=== PATIENT | female | born 1995 | race African-American/Black ===

== ENCOUNTER 2017-06-02 11:56 | Inpatient (IN) | payer BC, OTHER ==
[~2017-06-02] VITALS: Ht 170.2 cm; Wt 67.2 kg
[2017-06-02 11:58] VITALS: BP 133/83; PULSE 95; RESP 12; TEMP 98.5; O2SAT 98
[2017-06-02 13:10] LABS: AUTOMATED NEUTROPHIL # 5.9 TH/MM3 (1.8-7.7); BASOPHIL % 0.3 % (0.0-2.0); EOSINOPHIL # 0.1 TH/MM3 (0-0.4); EOSINOPHIL % 0.8 % (0.0-4.0); HEMATOCRIT 40.3 % (35.0-46.0); HEMO FLAGS DIFF FINAL; LYMPH % 16.2 % (9.0-44.0); LYMPHOCYTE # 1.2 TH/MM3 (1.0-4.8); MEAN CELL VOLUME 85.8 FL (80.0-100.0); MEAN CORPUSCULAR HEMOGLOBIN 29.1 PG (27.0-34.0); MEAN CORPUSCULAR HGB CONC 33.9 % (32.0-36.0); MONO % 4.8 % (0.0-8.0); NEUT % 77.9 % (16.0-70.0); PLATELET COUNT 235 TH/MM3 (150-450); RED CELL DISTRIBUTION WIDTH 12.9 % (11.6-17.2); WHITE BLOOD COUNT 7.6 TH/MM3 (4.0-11.0)
[2017-06-02 13:13] LABS: BACTERIA, URINE RARE /hpf; BLOOD, URINE LARGE (NEG); COMMENT (UR) CULT NOT INDICATED; CULTURE IF INDICATED CULT NOT INDICATED; GLUCOSE,URINE NEG (NEG); KETONE, URINE 10 mg/dL (NEG); MUCUS URINE MANY /lpf (OCC); NITRITE,URINE NEG (NEG); PH, URINE 5.5 (5.0-8.5); SQUAMOUS EPITHELIAL CELL URINE 4 /hpf (0-5); URINE COLOR YELLOW (YELLW/STRAW)
[2017-06-02 13:14] LABS: ALT (GPT) 116 U/L (10-53); ANION GAP 7 MEQ/L (5-15); AST (GOT) 495 U/L (15-37); BICARBONATE 26.3 MEQ/L (21.0-32.0); BLOOD UREA NITROGEN 10 MG/DL (7-18); CHLORIDE 105 MEQ/L (98-107); GLOMERULAR FILTRATION RATE 70 ML/MIN (>89); POTASSIUM 3.9 MEQ/L (3.5-5.1); SODIUM (NA) 138 MEQ/L (136-145)
[2017-06-02 13:43] LABS: ALKALINE PHOSPHATASE 82 U/L (45-117); TOTAL BILIRUBIN ADULT 0.3 MG/DL (0.2-1.0)
[2017-06-02 14:39] LABS: CKMB 3.5 NG/ML (0.5-3.6); CREATINE KINASE 29862 U/L (26-192)
[2017-06-02 14:58] VITALS: BP 125/77; PULSE 82; RESP 16; O2SAT 100
[2017-06-02] MEDS ORDERED: ORTHO (15:03)
[2017-06-02] MEDS ORDERED: SODIUM CHLOR 0.9% 1000 ML INJ 1,000 ML IV SCH (15:04)
[2017-06-02] MEDS ORDERED: LACTULOSE SYRUP 20 GM/30 ML CUP PO PRN (15:30)
[2017-06-02] MEDS ORDERED: NALOXONE HCL 0.4 MG/ML AMP IV PUSH PRN (15:30)
[2017-06-02] MEDS ORDERED: ONDANSETRON HCL 4 MG/2 ML VIAL IVP PRN (15:30)
[2017-06-02] MEDS ORDERED: MAGNESIUM HYDROXIDE SUSP 30 ML CUP PO PRN (15:30)
[2017-06-02] MEDS ORDERED: SODIUM CHLORIDE 0.9% FLUSH 10 ML FLUSH IV FLUSH PRN (15:30)
[2017-06-02] MEDS ORDERED: BISACODYL 10 MG SUPP RECTAL PRN (15:30)
[2017-06-02] MEDS ORDERED: SENNOSIDES 8.6 MG TAB PO PRN (15:30)
--- NOTE | 2017-06-02 15:44 | PD ---
HPI Chief Complaint: Musculoskeletal Complaint Time Seen by Provider: 14:55 Travel History International Travel<30 days: No Contact w/Intl Traveler<30days: No Traveled to known affect area: No History of Present Illness HPI 21-year-old female that presents to the ED for evaluation of bilateral arm pain. Patient has had this for 4 days. Per patient he started on Tuesday. She didn't think much of it she was doing a workout which is her usual for [employer] as well as [employer] class. She states that she didn't do any extraneous activity other than the pushups and pull ups and she did a full set for an hour. She denies any chest pain or shortness of breath. She has noted that her urine has been darker the past couple of days. She didn't think much of it but she decided to come here today because since yesterday she's been having difficulty extending her arms bilaterally. He is also noted swelling on her arms bilaterally. She denies any trauma. No falls. No head injury. No medical issues and takes no medications. She states that she's been trying to keep hydrated on her own and doing well but she's been feeling somewhat weak. She decided to come here today because the symptoms are not improving and she thought that she might just have pulled a muscle. She states that the pain is 7 out of 10 and gets worse when she extends. [facility] Past Medical History Medical History: Denies Significant Hx Tetanus Vaccination: < 5 Years ?: Unknown LMP: april? Past Surgical History Eye Surgery: Yes (2016) Other Surgery: Yes (hernia 2007) Social History Alcohol Use: Yes Tobacco Use: No Substance Use: No Allergies-Medications (Allergen,Severity, Reaction): Coded Allergies: No Known Allergies (Unverified , 06/02/17) Reported Meds & Prescriptions Reported Meds & Active Scripts Active Reported [ortho] Review of Systems Except as stated in HPI: all other systems reviewed are Neg Physical Exam Narrative GENERAL: SKIN: Warm and dry. HEAD: Atraumatic. Normocephalic. EYES: Pupils equal and round. No scleral icterus. No injection or drainage. ENT: No nasal bleeding or discharge. Mucous membranes pink and moist. Tongue is midline. No uvula deviation. NECK: Trachea midline. No JVD. CARDIOVASCULAR: Regular rate and rhythm. No murmurs, S3, S4. RESPIRATORY: No accessory muscle use. Clear to auscultation. Breath sounds equal bilaterally. GASTROINTESTINAL: Abdomen soft, non-tender, nondistended. Hepatic and splenic margins not palpable. MUSCULOSKELETAL: Extremities without clubbing, cyanosis, or edema. No obvious deformities. Patient cannot extend the arms bilaterally. 2+ pulses bilaterally. Some soft tissue swelling on the biceps bilaterally. Good capillary refill. NEUROLOGICAL: Awake and alert. No obvious cranial nerve deficits. Motor grossly within normal limits. Five out of 5 muscle strength in the arms and legs. Normal speech. PSYCHIATRIC: Appropriate mood and affect; insight and judgment normal. Data Data Last Documented VS Vital Signs Date Time Temp Pulse Resp B/P (MAP) Pulse Ox O2 Delivery O2 Flow Rate FiO2 06/02/17 14:58 82 16 125/77 (93) 100 Room Air 06/02/17 11:58 98.5 Orders Orders Complete Blood Count With Diff (06/02/17 12:22) Comprehensive Metabolic Panel (06/02/17 12:22) Creatine Kinase (Cpk) (06/02/17 12:22) Urinalysis - C+S If Indicated (06/02/17 12:22) CKMB (06/02/17 12:45) CKMB% (06/02/17 12:45) Sodium Chlor 0.9% 1000 Ml Inj (Ns 1000 M (06/02/17 15:04) Elbow, Limited (Ap&Lat) (06/02/17 ) Elbow, Limited (Ap&Lat) (06/02/17 ) Ed Urine Pregnancytest Poc (06/02/17 15:04) Admit Order (Ed Use Only) (06/02/17 15:37) Labs Laboratory Tests Test 06/02/17 12:20 06/02/17 12:45 Urine Color YELLOW Urine Turbidity HAZY Urine pH 5.5 Urine Specific [place] 1.033 Urine Protein 100 mg/dL Urine Glucose (UA) NEG mg/dL Urine Ketones 10 mg/dL Urine Occult Blood LARGE Urine Nitrite NEG Urine Bilirubin NEG Urine Urobilinogen LESS THAN 2.0 MG/DL Urine Leukocyte Esterase NEG Urine RBC 1 /hpf Urine WBC 7 /hpf Urine Squamous Epithelial Cells 4 /hpf Urine Bacteria RARE /hpf Urine Mucus MANY /lpf Microscopic Urinalysis Comment CULT NOT INDICATED White Blood Count 7.6 TH/MM3 Red Blood Count 4.70 MIL/MM3 Hemoglobin 13.7 GM/DL Hematocrit 40.3 % Mean Corpuscular Volume 85.8 FL Mean Corpuscular Hemoglobin 29.1 PG Mean Corpuscular Hemoglobin Concent 33.9 % Red Cell Distribution Width 12.9 % Platelet Count 235 TH/MM3 Mean Platelet Volume 8.1 FL Neutrophils (%) (Auto) 77.9 % Lymphocytes (%) (Auto) 16.2 % Monocytes (%) (Auto) 4.8 % Eosinophils (%) (Auto) 0.8 % Basophils (%) (Auto) 0.3 % Neutrophils # (Auto) 5.9 TH/MM3 Lymphocytes # (Auto) 1.2 TH/MM3 Monocytes # (Auto) 0.4 TH/MM3 Eosinophils # (Auto) 0.1 TH/MM3 Basophils # (Auto) 0.0 TH/MM3 CBC Comment DIFF FINAL Differential Comment Blood Urea Nitrogen 10 MG/DL Creatinine 0.99 MG/DL Random Glucose 87 MG/DL Total Protein 7.6 GM/DL Albumin 3.5 GM/DL Calcium Level 8.4 MG/DL Alkaline Phosphatase 82 U/L Aspartate Amino Transf (AST/SGOT) 495 U/L Alanine Aminotransferase (ALT/SGPT) 116 U/L Total Bilirubin 0.3 MG/DL Sodium Level 138 MEQ/L Potassium Level 3.9 MEQ/L Chloride Level 105 MEQ/L Carbon Dioxide Level 26.3 MEQ/L Anion Gap 7 MEQ/L Estimat Glomerular Filtration Rate 70 ML/MIN Total Creatine Kinase 38850 U/L Creatine Kinase MB 3.5 NG/ML Creatine Kinase MB % 0.0 % MDM Medical Decision Making Medical Screen Exam Complete: Yes Emergency Medical Condition: Yes Medical Record Reviewed: Yes Interpretation(s) CBC & BMP Diagram 06/02/17 12:45 Total Protein 7.6, Albumin 3.5, Calcium Level 8.4 L, Alkaline Phosphatase 82, Aspartate Amino Transf (AST/SGOT) 495 H, Alanine Aminotransferase (ALT/SGPT) 116 H, Total Bilirubin 0.3 CK in the 84540l Differential Diagnosis Arm pain versus rhabdomyolysis versus muscle strain versus fracture versus normal exam Narrative Course 21-year-old female that presents to the ED for evaluation of bilateral arm pain. Patient was properly examined and was found to have signs and symptoms concerning for rhabdomyolysis. X-rays were done and were negative for acute bony injury. Patient had blood work done at triage that showed elevated CK of 29,000 as well as elevated liver enzymes. Kidney function appears to be normal. I discussed this with the patient and the need for admission. She agrees with this. She was given IV fluids here. Case was discussed with my attending who agrees with admission. Patient was admitted to Dr. Lei who agrees to the admission. Diagnosis Primary Impression: Rhabdomyolysis Qualified Codes: M62.82 - Rhabdomyolysis Additional Impression: Elevated liver enzymes Admitting Information Admitting Physician Requests: Admit Ab Browning Jun 02, 2017 15:44
--- NOTE | 2017-06-02 15:51 | PD ---
Physical Exam Date Seen by Provider: Jun 02, 2017 Time Seen by Provider: 15:00 Narrative I, Dr. Garcia, have reviewed the advance practice practitioner's documentation and am in agreement, met with the patient face to face, made the diagnosis, and the medical decision making was done by me. *My assessment and Findings: Patient seen and evaluated with PA, please see PA note for further details. She has been doing strenuous exercises, currently with [employer], here for muscle aches and pains, exam did not show any signs of focality in the patient denies any injuries. Laboratory Tests Test 06/02/17 12:20 06/02/17 12:45 Urine Turbidity HAZY (CLEAR) Urine Protein 100 mg/dL (NEG-TRACE) Urine Ketones 10 mg/dL (NEG) Urine Occult Blood LARGE (NEG) Urine WBC 7 /hpf (0-5) Urine Bacteria RARE /hpf (NONE) Urine Mucus MANY /lpf (OCC) Neutrophils (%) (Auto) 77.9 % (16.0-70.0) Calcium Level 8.4 MG/DL (8.5-10.1) Aspartate Amino Transf (AST/SGOT) 495 U/L (15-37) Alanine Aminotransferase (ALT/SGPT) 116 U/L (10-53) Estimat Glomerular Filtration Rate 70 ML/MIN (>89) Total Creatine Kinase 93730 U/L (26-192) Lab work shows significant rhabdomyolysis. IV fluids are initiated in the ER. Adding to admit for further IV hydration and observation. Case discussed with hospitalist service for admission. Data Data Last Documented VS Vital Signs Date Time Temp Pulse Resp B/P (MAP) Pulse Ox O2 Delivery O2 Flow Rate FiO2 06/02/17 14:58 82 16 125/77 (93) 100 Room Air 06/02/17 11:58 98.5 Orders Orders Complete Blood Count With Diff (06/02/17 12:22) Comprehensive Metabolic Panel (06/02/17 12:22) Creatine Kinase (Cpk) (06/02/17 12:22) Urinalysis - C+S If Indicated (06/02/17 12:22) CKMB (06/02/17 12:45) CKMB% (06/02/17 12:45) Sodium Chlor 0.9% 1000 Ml Inj (Ns 1000 M (06/02/17 15:04) Elbow, Limited (Ap&Lat) (06/02/17 ) Elbow, Limited (Ap&Lat) (06/02/17 ) Ed Urine Pregnancytest Poc (06/02/17 15:04) Admit Order (Ed Use Only) (06/02/17 15:37) Admit To Inpatient (06/02/17 ) Vital Signs (Adult) Q4H (06/02/17 15:28) Activity Oob With Assistance (06/02/17 15:28) Intake + Output KARSON.QSHIFT (06/02/17 15:28) Diet Regular Basic (06/02/17 Dinner) Sodium Chlor 0.9% 1000 Ml Inj (Ns 1000 M (06/02/17 15:28) Sodium Chloride 0.9% Flush (Ns Flush) (06/02/17 15:30) Sodium Chloride 0.9% Flush (Ns Flush) (06/02/17 21:00) Ondansetron Inj (Zofran Inj) (06/02/17 15:30) Resp Oxygen Morgan C Titrat 1-4 L (06/02/17 ) Scd Bilateral/Knee High KARSON.BID (06/02/17 15:28) Naloxone Inj (Narcan Inj) (06/02/17 15:30) Docusate Sodium-Senna (Clara-Colace) (06/02/17 21:00) Magnesium Hydroxide Liq (Milk Of Magnesi (06/02/17 15:30) Sennosides (Senokot) (06/02/17 15:30) Bisacodyl Supp (Dulcolax Supp) (06/02/17 15:30) Lactulose Liq (Lactulose Liq) (06/02/17 15:30) Labs Laboratory Tests Test 06/02/17 12:20 06/02/17 12:45 Urine Color YELLOW Urine Turbidity HAZY Urine pH 5.5 Urine Specific [place] 1.033 Urine Protein 100 mg/dL Urine Glucose (UA) NEG mg/dL Urine Ketones 10 mg/dL Urine Occult Blood LARGE Urine Nitrite NEG Urine Bilirubin NEG Urine Urobilinogen LESS THAN 2.0 MG/DL Urine Leukocyte Esterase NEG Urine RBC 1 /hpf Urine WBC 7 /hpf Urine Squamous Epithelial Cells 4 /hpf Urine Bacteria RARE /hpf Urine Mucus MANY /lpf Microscopic Urinalysis Comment CULT NOT INDICATED White Blood Count 7.6 TH/MM3 Red Blood Count 4.70 MIL/MM3 Hemoglobin 13.7 GM/DL Hematocrit 40.3 % Mean Corpuscular Volume 85.8 FL Mean Corpuscular Hemoglobin 29.1 PG Mean Corpuscular Hemoglobin Concent 33.9 % Red Cell Distribution Width 12.9 % Platelet Count 235 TH/MM3 Mean Platelet Volume 8.1 FL Neutrophils (%) (Auto) 77.9 % Lymphocytes (%) (Auto) 16.2 % Monocytes (%) (Auto) 4.8 % Eosinophils (%) (Auto) 0.8 % Basophils (%) (Auto) 0.3 % Neutrophils # (Auto) 5.9 TH/MM3 Lymphocytes # (Auto) 1.2 TH/MM3 Monocytes # (Auto) 0.4 TH/MM3 Eosinophils # (Auto) 0.1 TH/MM3 Basophils # (Auto) 0.0 TH/MM3 CBC Comment DIFF FINAL Differential Comment Blood Urea Nitrogen 10 MG/DL Creatinine 0.99 MG/DL Random Glucose 87 MG/DL Total Protein 7.6 GM/DL Albumin 3.5 GM/DL Calcium Level 8.4 MG/DL Alkaline Phosphatase 82 U/L Aspartate Amino Transf (AST/SGOT) 495 U/L Alanine Aminotransferase (ALT/SGPT) 116 U/L Total Bilirubin 0.3 MG/DL Sodium Level 138 MEQ/L Potassium Level 3.9 MEQ/L Chloride Level 105 MEQ/L Carbon Dioxide Level 26.3 MEQ/L Anion Gap 7 MEQ/L Estimat Glomerular Filtration Rate 70 ML/MIN Total Creatine Kinase 76189 U/L Creatine Kinase MB 3.5 NG/ML Creatine Kinase MB % 0.0 % [facility] Medical Record Reviewed: Yes Supervised Visit with [place]: Yes Diagnosis Primary Impression: Rhabdomyolysis Qualified Codes: M62.82 - Rhabdomyolysis Additional Impression: Elevated liver enzymes Admitting Information Admitting Physician Requests: Admit Naresh Garcia MD Jun 02, 2017 15:51
--- NOTE | 2017-06-02 16:13 | RADRPT ---
EXAM DATE/TIME: 06/02/2017 15:34 [facility] COMPARISON: No previous studies available for comparison. INDICATIONS : Right elbow pain after working out. MEDICAL HISTORY : None. SURGICAL HISTORY : None. ENCOUNTER: Initial ACUITY: 3 days PAIN SCORE: 7/10 LOCATION: Right lateral elbow. FINDINGS: Two view examination of the right elbow demonstrates no soft tissue swelling, joint effusion, fractur e or dislocation. Bony mineralization is normal. CONCLUSION: Intact without evidence of fracture, dislocation or significant arthropathy. Carl Nunez MD on June 02, 2017 at 16:11 Board Certified Radiologist. This report was verified electronically.
--- NOTE | 2017-06-02 16:13 | RADRPT ---
EXAM DATE/TIME: 06/02/2017 15:31 [facility] COMPARISON: No previous studies available for comparison. INDICATIONS : Left elbow pain after working out. MEDICAL HISTORY : None. SURGICAL HISTORY : None. ENCOUNTER: Initial ACUITY: 3 days PAIN SCORE: 7/10 LOCATION: Left lateral elbow. FINDINGS: Two view examination of the left elbow demonstrates no soft tissue swelling, joint effusion, fracture or dislocation. Bony mineralization is normal. CONCLUSION: Intact elbow without evidence of fracture, dislocation or significant arthropathy. No evidence of joint effusion. Carl Nunez MD on June 02, 2017 at 16:10 Board Certified Radiologist. This report was verified electronically.
--- NOTE | 2017-06-02 16:44 | HHI.HP ---
[facility] Service [facility] Primary Care Physician No Primary Care Physician Admission Diagnosis acute rhabdomyolisis, elevated liver enzymes Diagnoses: Chief Complaint: Bilateral arm pain and generalized muscle pain Travel History International Travel<30 Days: No Contact w/Intl Traveler <30 Da: No Traveled to Known Affected Are: No History of Present Illness This is a 21-year-old female with a past medical history complaining of generalized muscle pain especially bilaterally in the arms. Patient stated that on Tuesday she was doing a high intense type of exercise with [employer]. She stated that the next day she started having some muscle soreness but it was very severe on Tuesday. Patient stated that pain continues to worsen and did not improve. She also stated he was hard to extend her arm at the elbow due to pain. Patient then went to her medical clinic because she was suppose to do the same exercises the next day and she was referred by medical provider there to go to the emergency department. Patient rarely drinks any alcohol. She stated she is up-to-date with hepatitis B vaccination. Denied pain or nausea vomiting. She has no history of liver disease. She stated that she produced the same amount of urine but it did look darker. Otherwise other review of system reviewed and negative. Past Family Social History Past Medical History Deny any past medical history. Past Surgical History Umbilical hernia repair. Reported Medications none Allergies: Coded Allergies: No Known Allergies (Unverified , 06/02/17) Active Ordered Medications Current Medications Sodium Chloride 1,000 ml @ 1,000 mls/hr Q1H IV Last administered on 06/02/17t 15:11; Start 06/02/17 at 15:04; Stop 06/02/17 at 16:03; Status DC Sodium Chloride 1,000 ml @ 150 mls/hr Q6H40M IV ; Start 06/02/17 at 15:28 Sodium Chloride (NS Flush) 2 ml UNSCH PRN IV FLUSH FLUSH AFTER USING IV ACCESS ; Start 06/02/17 at 15:30 Sodium Chloride (NS Flush) 2 ml BID IV FLUSH ; Start 06/02/17 at 21:00 Ondansetron HCl (Zofran Inj) 4 mg Q6H PRN IVP NAUSEA OR VOMITING; Start at 15:30 Naloxone HCl (Narcan Inj) 0.4 mg UNSCH PRN IV PUSH SEE LABEL COMMENTS; Start 06/02/17 at 15:30 Senna/Docusate Sodium (Clara-Colace) 1 tab BID PO ; Start 06/02/17 at 21:00 Magnesium Hydroxide (Milk Of Magnesia Liq) 30 ml Q12H PRN PO Mild constipation ; Start 06/02/17 at 15:30 Sennosides (Senokot) 17.2 mg Q12H PRN PO Moderate constipation; Start 06/02/17 at 15:30 Bisacodyl (Dulcolax Supp) 10 mg DAILY PRN RECTAL SEVERE CONSITIPATION; Start 06/02/17 at 15:30 Lactulose (Lactulose Liq) 30 ml DAILY PRN PO SEVERE CONSITIPATION; Start at 15:30 Family History Mother had a history of diabetes hypertension. Maternal grandmother has history of hypertension. Social History Deny any tobacco use. Rarely drinks alcohol. Denies illicit drug use. Physical Exam Vital Signs Vital Signs Date Time Temp Pulse Resp B/P (MAP) Pulse Ox O2 Delivery O2 Flow Rate FiO2 06/02/17 14:58 82 16 125/77 (93) 100 Room Air 06/02/17 11:58 98.5 95 12 133/83 (100) 98 Physical Exam GENERAL: This is a well-nourished, well-developed patient, in no apparent distress. SKIN: No rashes, ecchymoses or lesions. Cool and dry. HEAD: Atraumatic. Normocephalic. No temporal or scalp tenderness. EYES: Pupils equal round and reactive. Extraocular motions intact. No scleral icterus. No injection or drainage. ENT: Nose without bleeding, purulent drainage or septal hematoma. Throat without erythema, tonsillar hypertrophy or exudate. Uvula midline. Airway patent. NECK: Trachea midline. No JVD or lymphadenopathy. Supple, nontender, no meningeal signs. CARDIOVASCULAR: Regular rate and rhythm without murmurs, gallops, or rubs. RESPIRATORY: Clear to auscultation. Breath sounds equal bilaterally. No wheezes , rales, or rhonchi. GASTROINTESTINAL: Abdomen soft, non-tender, nondistended. No hepato-splenomegaly , or palpable masses. No guarding. MUSCULOSKELETAL: Extremities without clubbing, cyanosis, or edema. No joint tenderness. + TTP of arm muscles. Unable to extend the elbow completely due to muscle pain. NEUROLOGICAL: Awake and alert. Cranial nerves II through XII intact. Motor and sensory grossly within normal limits. Five out of 5 muscle strength in all muscle groups. Normal speech. Laboratory Laboratory Tests Test 06/02/17 12:20 06/02/17 12:45 Urine Color YELLOW Urine Turbidity HAZY Urine pH 5.5 Urine Specific [place] 1.033 Urine Protein 100 Urine Glucose (UA) NEG Urine Ketones 10 Urine Occult Blood LARGE Urine Nitrite NEG Urine Bilirubin NEG Urine Urobilinogen LESS THAN 2.0 Urine Leukocyte Esterase NEG Urine RBC 1 Urine WBC 7 Urine Squamous Epithelial Cells 4 Urine Bacteria RARE Urine Mucus MANY Microscopic Urinalysis Comment CULT NOT INDICATED White Blood Count 7.6 Red Blood Count 4.70 Hemoglobin 13.7 Hematocrit 40.3 Mean Corpuscular Volume 85.8 Mean Corpuscular Hemoglobin 29.1 Mean Corpuscular Hemoglobin Concent 33.9 Red Cell Distribution Width 12.9 Platelet Count 235 Mean Platelet Volume 8.1 Neutrophils (%) (Auto) 77.9 Lymphocytes (%) (Auto) 16.2 Monocytes (%) (Auto) 4.8 Eosinophils (%) (Auto) 0.8 Basophils (%) (Auto) 0.3 Neutrophils # (Auto) 5.9 Lymphocytes # (Auto) 1.2 Monocytes # (Auto) 0.4 Eosinophils # (Auto) 0.1 Basophils # (Auto) 0.0 CBC Comment DIFF FINAL Differential Comment Blood Urea Nitrogen 10 Creatinine 0.99 Random Glucose 87 Total Protein 7.6 Albumin 3.5 Calcium Level 8.4 Alkaline Phosphatase 82 Aspartate Amino Transf (AST/SGOT) 495 Alanine Aminotransferase (ALT/SGPT) 116 Total Bilirubin 0.3 Sodium Level 138 Potassium Level 3.9 Chloride Level 105 Carbon Dioxide Level 26.3 Anion Gap 7 Estimat Glomerular Filtration Rate 70 Total Creatine Kinase 68592 Creatine Kinase MB 3.5 Creatine Kinase MB % 0.0 Result Diagram: 06/02/17 1245 06/02/17 1245 Imaging Last Impressions Elbow X-Ray 06/02/17 0000 Signed Impressions: Service Date/Time: Thursday, June 02, 2017 15:31 - CONCLUSION: Intact elbow without evidence of fracture, dislocation or significant arthropathy. No evidence of joint effusion. Carl Nunez MD Caprini VTE Risk Assessment Caprini VTE Risk Assessment: No/Low Risk (score <= 1) Caprini Risk Assessment Model Point Value = 1 Point Value = 2 Point Value = 3 Point Value = 5 Age 41-60 Minor surgery BMI > 25 kg/m2 Swollen legs Varicose veins or History of unexplained or recurrent spontaneous Oral contraceptives or hormone replacement Sepsis (< 1 month) Serious lung disease, including pneumonia (< 1 month) Abnormal pulmonary function Acute myocardial infarction Congestive heart failure (< 1 month) History of inflammatory bowel disease Medical patient at bed rest Age 61-74 Arthroscopic surgery Major open surgery (> 45 min) Laparoscopic surgery (> 45 min) Malignancy Confined to bed (> 72 hours) Immobilizing plaster cast Central venous access Age >= 75 History of VTE Family history of VTE Factor V Leiden Prothrombin [id number] Lupus anticoagulant Anticardiolipin antibodies Elevated serum homocysteine Heparin-induced thrombocytopenia Other congenital or acquired thrombophilia Stroke (< 1 month) Elective arthroplasty Hip, pelvis, or leg fracture Acute spinal cord injury (< 1 month) Prophylaxis Regimen Total Risk Factor Score Risk Level Prophylaxis Regimen 0-1 Low Early ambulation 2 Moderate Order ONE of the following: *Sequential Compression Device (SCD) *Heparin 5000 units SQ BID 3-4 Higher Order ONE of the following medications: *Heparin 5000 units SQ TID *Enoxaparin/Lovenox 40 mg SQ daily (WT < 150 kg, CrCl > 30 mL/min) *Enoxaparin/Lovenox 30 mg SQ daily (WT < 150 kg, CrCl > 10-29 mL/min) *Enoxaparin/Lovenox 30 mg SQ BID (WT < 150 kg, CrCl > 30 mL/min) AND/OR *Sequential Compression Device (SCD) 5 or more Highest Order ONE of the following medications: *Heparin 5000 units SQ TID (Preferred with Epidurals) *Enoxaparin/Lovenox 40 mg SQ daily (WT < 150 kg, CrCl > 30 mL/min) *Enoxaparin/Lovenox 30 mg SQ daily (WT < 150 kg, CrCl > 10-29 mL/min) *Enoxaparin/Lovenox 30 mg SQ BID (WT < 150 kg, CrCl > 30 mL/min) AND *Sequential Compression Device (SCD) Assessment and Plan Assessment and Plan This is a healthy 21-year-old female who complained of diffuse muscle soreness after high intensity workout Rhabdomyolysis -Secondary to high intensity exercise. Patient has normal kidney function. -She was given a bolus of IV fluids and ED. Will give maintenance fluids at 150 cc per hour. Monitor creatinine and CK. Strict ins and outs. Encouraged fluid intake. Elevated LFTs -Asymptomatic. May be secondary to rhabdomyolysis. Avoid any hepatotoxins. -Patient had hepatitis B vaccination. Will get hepatitis panel and liver ultrasound. -Continue to trend LFTs. Diffuse muscle pain especially bilateral arms -Occurred after high intensity workout several most likely secondary to muscle damage. -Will give oxycodone when necessary for pain. Will need to avoid Tylenol due to elevated LFTs. DVT prophylaxis -Encourage ambulation. Code Status full Discussed Condition With patient Physician Certification 2 Midnight Certification Type: Admission for Inpatient Services Order for Inpatient Services The services are ordered in accordance with Medicare regulations or non- Medicare payer requirements, as applicable. In the case of services not specified as inpatient-only, they are appropriately provided as inpatient services in accordance with the 2-midnight benchmark. Estimated LOS (days): 3 3 days is the estimated time the patient will need to remain in the hospital, assuming treatment plan goals are met and no additional complications. Post-Hospital Plan: Kylah Guerra MD Jun 02, 2017 16:44
[2017-06-02] MEDS: SODIUM CHLOR 0.9% 1000 ML INJ 1,000 ML IV SCH ×2 (17:23→21:20)
--- NOTE | 2017-06-02 17:51 | RADRPT ---
EXAM DATE/TIME: 06/02/2017 17:18 [facility] COMPARISON: No previous studies available for comparison. INDICATIONS : Increased labs. MEDICAL HISTORY : Muscle pain. SURGICAL HISTORY : Eye surgery. Hernia repair. ENCOUNTER: Initial ACUITY: 1 day PAIN SCORE: 0/10 LOCATION: Bilateral upper quadrant MEASUREMENTS: LIVER: 16.8 cm length COMMON DUCT: 2 mm RIGHT KIDNEY: 9.3 x 4.9 x 3.3 cm SPLEEN: 8.0 cm length FINDINGS: LIVER: Normal echotexture without focal lesion or ductal dilatation. COMMON DUCT: No intraluminal mass or stone visualized. GALLBLADDER: Gallbladder is minimally distended with borderline wall thickness. No definite mobile stones. No ed cholecystic fluid. PANCREAS: The visualized portions are within normal limits. RIGHT KIDNEY: No hydronephrosis, stone or mass. SPLEEN: No focal lesion. CONCLUSION: Focally unremarkable sonographic appearance of the right upper quadrant Hero Sears MD on June 02, 2017 at 17:47 Board Certified Radiologist. This report was verified electronically.
[2017-06-02 20:00] VITALS: BP 140/76; PULSE 92; RESP 18; TEMP 98.7; O2SAT 97
[2017-06-02] MEDS: SODIUM CHLORIDE 0.9% FLUSH 10 ML FLUSH IV FLUSH SCH (21:00)
[2017-06-02] MEDS: DOCUSATE SODIUM 50 MG/SENNA 8.6 MG TAB PO SCH (21:00)
[2017-06-03] VITALS: BP 134/81; PULSE 79; RESP 18; TEMP 97.6; O2SAT 100
[2017-06-03] MEDS: SODIUM CHLOR 0.9% 1000 ML INJ 1,000 ML IV SCH ×3 (04:08→22:55)
[2017-06-03 07:09] LABS: HEMATOCRIT 35.7 % (35.0-46.0); MEAN CORPUSCULAR HEMOGLOBIN 28.8 PG (27.0-34.0); MEAN CORPUSCULAR HGB CONC 33.9 % (32.0-36.0); PLATELET COUNT 198 TH/MM3 (150-450); RED CELL DISTRIBUTION WIDTH 12.9 % (11.6-17.2); REVIEW FLAG FINAL; WHITE BLOOD COUNT 5.3 TH/MM3 (4.0-11.0)
[2017-06-03 07:39] LABS: BICARBONATE 22.5 MEQ/L (21.0-32.0); POTASSIUM 3.9 MEQ/L (3.5-5.1)
[2017-06-03 08:00] VITALS: BP 109/59; PULSE 60; RESP 16; TEMP 97.5; O2SAT 100
[2017-06-03 08:03] LABS: INDIRECT BILIRUBIN 0.1 MG/DL (0.0-0.8); TOTAL BILIRUBIN ADULT 0.2 MG/DL (0.2-1.0)
[2017-06-03] MEDS: SODIUM CHLORIDE 0.9% FLUSH 10 ML FLUSH IV FLUSH SCH ×2 (09:00→22:53)
[2017-06-03] MEDS: DOCUSATE SODIUM 50 MG/SENNA 8.6 MG TAB PO SCH ×2 (09:00→21:00)
[2017-06-03 09:22] VITALS: O2SAT 98
[2017-06-03 10:29] LABS: CKMB 2.4 NG/ML (0.5-3.6)
--- NOTE | 2017-06-03 10:53 | HHI.PR ---
Subjective Remarks Follow-up rhabdomyolysis. Patient states that her muscle aches are improving. She reports swelling of her upper extremities, but no lower extremity edema. Denies chest pain or dyspnea. States that she is urinating a lot. Objective Vitals Vital Signs Date Time Temp Pulse Resp B/P (MAP) Pulse Ox O2 Delivery O2 Flow Rate FiO2 06/03/17 09:22 98 21 06/03/17 08:00 97.5 60 16 109/59 (76) 100 06/03/17 00:00 97.6 79 18 134/81 (98) 100 06/02/17 20:00 98.7 92 18 140/76 (97) 97 06/02/17 14:58 82 16 125/77 (93) 100 Room Air 06/02/17 11:58 98.5 95 12 133/83 (100) 98 I/O 06/02/17 06/02/17 06/02/17 06/03/17 06/03/17 06/03/17 07:00 15:00 23:00 07:00 15:00 23:00 Intake Total 1700 ml 1240 ml Balance 1700 ml 1240 ml Intake Oral 240 ml IV Total 1700 ml 1000 ml # Voids 2 Result Diagram: 06/03/17 0545 06/03/17 0545 Imaging Last Impressions Liver Ultrasound 06/02/17 0000 Signed Impressions: Service Date/Time: May 17:18 - CONCLUSION: Focally unremarkable sonographic appearance of the right upper quadrant Hero Sears MD Elbow X-Ray 06/02/17 0000 Signed Impressions: Service Date/Time: May 15:31 - CONCLUSION: Intact elbow without evidence of fracture, dislocation or significant arthropathy. No evidence of joint effusion. Carl Nunez MD Objective Remarks Patient examined in presence of the nurse. General: No acute distress. Heart: Regular rate and rhythm. No murmur. Lungs: Clear to auscultation bilaterally. No wheezes, rales, or rhonchi. Breathing is nonlabored. Abdomen: Soft, nontender, nondistended. Extremities: No lower extremity edema. Mild bilateral upper extremity. Psych: Alert and oriented. Procedures None Urinary Catheter: No Vascular Central Line Catheter: No A/P Problem List: (1) Rhabdomyolysis ICD Code: M62.82 - Rhabdomyolysis Status: Acute (2) Elevated liver enzymes ICD Code: R74.8 - Abnormal levels of other serum enzymes Status: Acute Assessment and Plan 1. Rhabdomyolysis: Secondary to high intensity exercise. Renal function remains normal. Continue IV fluids at 125 mL per hour. CK still elevated, but trending down. Monitor strict intake/output. Encourage oral fluid intake. Muscle aches are improving. 2. Elevated LFTs: Symptomatically. Possibly secondary to rhabdomyolysis. Status post panel pending. Liver ultrasound negative. Monitor labs. 3. DVT prophylaxis: Ambulation. Problem Qualifiers (1) Rhabdomyolysis: Qualified Codes: M62.82 - Rhabdomyolysis Dariel Ellis MD Jun 03, 2017 10:53
[2017-06-03 12:00] VITALS: BP 109/63; PULSE 87; RESP 16; TEMP 97.3; O2SAT 100
[2017-06-03 16:00] VITALS: BP 128/72; PULSE 83; RESP 17; TEMP 98.1; O2SAT 96
[2017-06-03 21:34] VITALS: BP 141/87; PULSE 68; RESP 18; TEMP 98.1; O2SAT 100
[2017-06-04 01:05] VITALS: BP 123/65; PULSE 90; RESP 18; TEMP 96.6; O2SAT 100
[2017-06-04] MEDS: SODIUM CHLOR 0.9% 1000 ML INJ 1,000 ML IV SCH ×3 (05:26→15:27)
[2017-06-04 05:52] LABS: ANION GAP 10 MEQ/L (5-15); AST (GOT) 528 U/L (15-37); BICARBONATE 22.2 MEQ/L (21.0-32.0); BLOOD UREA NITROGEN 8 MG/DL (7-18); CHLORIDE 106 MEQ/L (98-107); GLOMERULAR FILTRATION RATE 105 ML/MIN (>89); POTASSIUM 3.8 MEQ/L (3.5-5.1); SODIUM (NA) 138 MEQ/L (136-145)
[2017-06-04 05:53] LABS: ALT (GPT) 143 U/L (10-53)
[2017-06-04 06:18] LABS: ALKALINE PHOSPHATASE 75 U/L (45-117); TOTAL BILIRUBIN ADULT 0.1 MG/DL (0.2-1.0)
[2017-06-04 08:00] VITALS: BP_SYST 118; BP_SYST 96; BP_DIAS 54; BP_DIAS 66; PULSE 79; RESP 18; TEMP 97.2; O2SAT 99
[2017-06-04 08:33] LABS: CREATINE KINASE 27989 U/L (26-192)
[2017-06-04 08:49] LABS: CKMB 2.2 NG/ML (0.5-3.6)
[2017-06-04] MEDS: SODIUM CHLORIDE 0.9% FLUSH 10 ML FLUSH IV FLUSH SCH ×2 (09:00→21:00)
[2017-06-04] MEDS: DOCUSATE SODIUM 50 MG/SENNA 8.6 MG TAB PO SCH ×2 (09:00→21:00)
[2017-06-04 12:00] VITALS: BP 126/69; PULSE 88; RESP 20; TEMP 98.4; O2SAT 99
--- NOTE | 2017-06-04 12:03 | HHI.PR ---
Subjective Remarks Follow-up rhabdomyolysis. The patient states that her upper extremity pain has continued to improve. She still has swelling in her right arm, but it is decreasing. Denies chest pain or dyspnea. Denies nausea, vomiting, abdominal pain. Objective Vitals Vital Signs Date Time Temp Pulse Resp B/P (MAP) Pulse Ox O2 Delivery O2 Flow Rate FiO2 06/04/17 08:00 97.2 79 18 96/54 (68) 99 118/66 (83) 06/04/17 01:05 96.6 90 18 123/65 (84) 100 06/03/17 21:34 98.1 68 18 141/87 (105) 100 06/03/17 16:00 98.1 83 17 128/72 (90) 96 I/O 06/03/17 06/03/17 06/03/17 06/04/17 06/04/17 06/04/17 07:00 15:00 23:00 07:00 15:00 23:00 Intake Total 1240 ml 500 ml 1000 ml Balance 1240 ml 500 ml 1000 ml Intake Oral 240 ml 500 ml IV Total 1000 ml 1000 ml # Voids 2 3 2 # Bowel Movements 0 Result Diagram: 06/03/17 0545 06/04/17 0431 Imaging Last Impressions Liver Ultrasound 06/02/17 0000 Signed Impressions: Service Date/Time: May 17:18 - CONCLUSION: Focally unremarkable sonographic appearance of the right upper quadrant Hero Sears MD Elbow X-Ray 06/02/17 0000 Signed Impressions: Service Date/Time: May 15:31 - CONCLUSION: Intact elbow without evidence of fracture, dislocation or significant arthropathy. No evidence of joint effusion. Carl Nunez MD Objective Remarks Patient examined in presence of the CENTRAL OFFICE REPAIRER SUPERVISOR. General: No acute distress. Heart: Regular rate and rhythm. No murmur. Lungs: Clear to auscultation bilaterally. No wheezes, rales, or rhonchi. Breathing is nonlabored. Abdomen: Soft, nontender, nondistended. Extremities: No lower extremity edema. Mild right upper extremity edema. Very mild tenderness on palpation of the right upper extremity. Left upper extremity swelling has improved. Procedures None Urinary Catheter: No Vascular Central Line Catheter: No A/P Problem List: (1) Rhabdomyolysis ICD Code: M62.82 - Rhabdomyolysis Status: Acute (2) Elevated liver enzymes ICD Code: R74.8 - Abnormal levels of other serum enzymes Status: Acute Assessment and Plan 1. Rhabdomyolysis: Secondary to high intensity exercise. Renal function remains normal. CK increased again today. Continue IV fluids, increase rate to 150 mL per hour. Monitor strict intake/output. Encourage oral fluid intake. Muscle aches continue to improve. 2. Elevated LFTs: Symptomatically. Possibly secondary to rhabdomyolysis. Hepatitis panel negative. Liver ultrasound negative. LFTs are trending up. And sulfa GI. 3. DVT prophylaxis: Ambulation. Discharge Planning When CK <5000 and symptoms have improved. Problem Qualifiers (1) Rhabdomyolysis: Qualified Codes: M62.82 - Rhabdomyolysis Dariel Ellis MD Jun 04, 2017 12:03
[2017-06-04 16:00] VITALS: BP 115/72; PULSE 75; RESP 20; TEMP 98.7; O2SAT 100
[2017-06-04 17:52] VITALS: O2SAT 99
[2017-06-04 20:00] VITALS: BP 123/72; PULSE 79; RESP 18; TEMP 99; O2SAT 96
[2017-06-05] VITALS: BP 111/57; PULSE 80; RESP 18; TEMP 98.4; O2SAT 99
[2017-06-05] MEDS: SODIUM CHLOR 0.9% 1000 ML INJ 1,000 ML IV SCH ×4 (00:55→18:02)
[2017-06-05 05:37] LABS: ALT (GPT) 143 U/L (10-53); ANION GAP 6 MEQ/L (5-15); AST (GOT) 423 U/L (15-37); BICARBONATE 24.1 MEQ/L (21.0-32.0); BLOOD UREA NITROGEN 6 MG/DL (7-18); CHLORIDE 109 MEQ/L (98-107); GLOMERULAR FILTRATION RATE 134 ML/MIN (>89); POTASSIUM 3.9 MEQ/L (3.5-5.1); SODIUM (NA) 139 MEQ/L (136-145)
[2017-06-05 06:01] LABS: ALKALINE PHOSPHATASE 79 U/L (45-117); TOTAL BILIRUBIN ADULT 0.1 MG/DL (0.2-1.0)
[2017-06-05 07:39] LABS: CREATINE KINASE 17089 U/L (26-192)
[2017-06-05 07:57] LABS: CKMB 1.8 NG/ML (0.5-3.6)
[2017-06-05 08:00] VITALS: BP 117/58; PULSE 78; RESP 16; TEMP 98.4; O2SAT 99
--- NOTE | 2017-06-05 10:19 | PD.CONS ---
HPI History of Present Illness This is a 21 year old female who is in the [employer] R[employer] program at [employer] and did a high intensity upper body workout this past Tuesday. She reports the next day, she was sore, but able to function. By Tuesday, she could barely move her upper extremities and was noted to have some swelling in both upper extremities. She then went to the school clinic and her physician referred her to the ER. She was found to have elevated CPK and transaminases and was admitted for Rhabdomyolysis. She reports that there are several other cadets admitted with the same thing. On admission, she was noted to have CPK of 29,862 with T. Bili 0.3, AST 495, ALT 116, Alk Phosph 82. She is being treated with IVF and today, her CPK is 17,089, T. Bili 0.1, AST 423, ALT 143, Alk Phosph 79. Hepatitis profile was negative. US (06/02/17)---> focally unremarkable sonographic appearance of the right upper quadrant. She is currently eating breakfast in bed. She is not having any nausea, vomiting, fevers, chills, diarrhea, melena, or hematochezia. She has been mildly constipated since being in the hospital and has had some mild lower abdominal cramping that seems to be intermittent- without any aggravating or alleviating factors. She denies any new medications or herbal supplements, only occasionally drinks ETOH, and her mother denies any family hx of liver disease. (Tati Romero) [facility] Past Medical History Denies Past Surgical History Umbilical hernia repair. (Tati Romero) Coded Allergies: No Known Allergies (Unverified , 06/02/17) Medications Allergies Coded Allergies Type Severity Reaction Last Updated Verified No Known Allergies 06/02/17 No Active Scripts Medications Dose Route/Sig Max Daily Dose Days Date Category [ortho] 06/02/17 Reported Family History Mother had a history of diabetes hypertension. Maternal grandmother has history of hypertension. Social History Deny any tobacco use. Rarely drinks alcohol. Denies illicit drug use. (Tati Romero) Review of Systems Constitutional: COMPLAINS OF: Fatigue, DENIES: Fever, Chills Respiratory: DENIES: Cough Cardiovascular: DENIES: Chest pain Gastrointestinal: COMPLAINS OF: Abdominal pain, Constipation, DENIES: Black stools, Bloody stools, Diarrhea, Nausea, Vomiting, Heartburn, Hematemesis Musculoskeletal: COMPLAINS OF: Muscle aches, Stiffness Hematologic/lymphatic: DENIES: Bruising Neurologic: DENIES: Headache Psychiatric: DENIES: Confusion (Tati Romero) GI Exam Vitals I&O Vital Signs Date Time Temp Pulse Resp B/P (MAP) Pulse Ox O2 Delivery O2 Flow Rate FiO2 06/05/17 08:00 98.4 78 16 117/58 (77) 99 06/05/17 00:00 98.4 80 18 111/57 (75) 99 06/04/17 20:00 99.0 79 18 123/72 (89) 96 06/04/17 17:52 99 21 06/04/17 16:00 98.7 75 20 115/72 (86) 100 06/04/17 12:00 98.4 88 20 126/69 (88) 99 I/O 06/04/17 06/04/17 06/04/17 06/05/17 06/05/17 06/05/17 07:00 15:00 23:00 07:00 15:00 23:00 Intake Total 1000 ml 2540 ml 1480 ml Output Total 1800 ml 1500 ml Balance 1000 ml 740 ml -20 ml Intake Oral 1540 ml 480 ml IV Total 1000 ml 1000 ml 1000 ml Output Urine Total 1800 ml 1500 ml # Voids 2 # Bowel Movements 0 0 Imaging Last Impressions Liver Ultrasound 06/02/17 0000 Signed Impressions: Service Date/Time: May 17:18 - CONCLUSION: Focally unremarkable sonographic appearance of the right upper quadrant Hero Sears MD Elbow X-Ray 06/02/17 0000 Signed Impressions: Service Date/Time: May 15:31 - CONCLUSION: Intact elbow without evidence of fracture, dislocation or significant arthropathy. No evidence of joint effusion. Carl Nunez MD Laboratory Test 06/05/17 04:10 Blood Urea Nitrogen 6 MG/DL Creatinine 0.66 MG/DL Random Glucose 91 MG/DL Total Protein 6.2 GM/DL Albumin 2.7 GM/DL Calcium Level 8.1 MG/DL Alkaline Phosphatase 79 U/L Aspartate Amino Transf (AST/SGOT) 423 U/L Alanine Aminotransferase (ALT/SGPT) 143 U/L Total Bilirubin 0.1 MG/DL Sodium Level 139 MEQ/L Potassium Level 3.9 MEQ/L Chloride Level 109 MEQ/L Carbon Dioxide Level 24.1 MEQ/L Anion Gap 6 MEQ/L Estimat Glomerular Filtration Rate 134 ML/MIN Total Creatine Kinase 48020 U/L Creatine Kinase MB 1.8 NG/ML Creatine Kinase MB % 0.0 % Physical Examination HEENT: Normocephalic; atraumatic; no jaundice. CHEST: CTA CARDIAC: RRR ABDOMEN: Soft, nondistended, nontender; no hepatosplenomegaly; bowel sounds are present in all four quadrants. EXTREMITIES: No clubbing, cyanosis, or edema. SKIN: Normal; no rash; no jaundice. SUPERVISOR BEAM DEPARTMENT: No focal deficits; alert and oriented times three. (Tati Romero) Assessment and Plan Plan ASSESSMENT: - Elevated LFTs, most likely secondary to Rhabdomyolysis. Liver US (06/02/17)--- > Focally unremarkable sonographic appearance of the right upper quadrant. Hep. Profile (-). On admission, noted to have LFTs of T. Bili 0.3, AST 495, ALT 116, Alk Phosph 82. She is getting IVF and LFTs are only slightly improved, with T. Bili 0.1, AST 423, ALT 143, Alk Phosph 79. No n/v/d. Mild lower abdominal cramping/constipation. Will get liver workup, although this is most likely related to her Rhabdo and suspect that her liver enzymes will improve once her CPK starts to decline more. Avoid hepatotoxins. - Rhabdomyolysis. 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 She had soreness the next day, which became more severe with swelling by Tuesday. She was evaluated at the school clinic and referred to the ER. On admission, she was noted to have CPK of 29,862 and is being treated with IVF and today, her CPK is 17,089. IVF. - Constipation, mild. Senokot, Colace ordered. PLAN: - KUMAR - IVF - AFP - YVONNE, AMA, ASMA - Ceruloplasmin, Alpha 1 Antitrypsin - Ferritin, Iron saturation - Monitor LFTs, CPK, renal function - Avoid hepatotoxins - Supportive care - Further recommendations to follow based on results of above - PT seen and examined by Dr. Yang and myself and this note is written on his behalf (Tati Romero) Physician Comments Seen and examined, plan as above, aggressive hydration and check labs for CLD. Thank you for the consult. (Mira Yang MD) Tati Romero Jun 05, 2017 10:19 Mira Yang MD Jun 05, 2017 13:58
[2017-06-05] MEDS: SODIUM CHLORIDE 0.9% FLUSH 10 ML FLUSH IV FLUSH SCH ×2 (10:43→20:43)
[2017-06-05] MEDS: DOCUSATE SODIUM 50 MG/SENNA 8.6 MG TAB PO SCH ×2 (10:43→20:40)
--- NOTE | 2017-06-05 11:42 | HHI.PR ---
Subjective Remarks Follow up rhabdomyolysis. Patient reports less pain in her upper extremities. She feels that the swelling is improving as well. Denies chest pain or dyspnea. No nausea or vomiting. Objective Vitals Vital Signs Date Time Temp Pulse Resp B/P (MAP) Pulse Ox O2 Delivery O2 Flow Rate FiO2 06/05/17 08:00 98.4 78 16 117/58 (77) 99 06/05/17 00:00 98.4 80 18 111/57 (75) 99 06/04/17 20:00 99.0 79 18 123/72 (89) 96 06/04/17 17:52 99 21 06/04/17 16:00 98.7 75 20 115/72 (86) 100 06/04/17 12:00 98.4 88 20 126/69 (88) 99 I/O 06/04/17 06/04/17 06/04/17 06/05/17 06/05/17 06/05/17 07:00 15:00 23:00 07:00 15:00 23:00 Intake Total 1000 ml 2540 ml 1480 ml Output Total 1800 ml 1500 ml Balance 1000 ml 740 ml -20 ml Intake Oral 1540 ml 480 ml IV Total 1000 ml 1000 ml 1000 ml Output Urine Total 1800 ml 1500 ml # Voids 2 # Bowel Movements 0 0 Result Diagram: 06/03/17 0545 06/05/17 0410 Imaging Last Impressions Liver Ultrasound 06/02/17 0000 Signed Impressions: Service Date/Time: May 17:18 - CONCLUSION: Focally unremarkable sonographic appearance of the right upper quadrant Hero Sears MD Elbow X-Ray 06/02/17 0000 Signed Impressions: Service Date/Time: May 15:31 - CONCLUSION: Intact elbow without evidence of fracture, dislocation or significant arthropathy. No evidence of joint effusion. Carl Nunez MD Objective Remarks Patient examined in presence of the nurse. General: No acute distress. Heart: Regular rate and rhythm. No murmur. Lungs: Clear to auscultation bilaterally. No wheezes, rales, or rhonchi. Breathing is nonlabored. Abdomen: Soft, nontender, nondistended. Extremities: No lower extremity edema. Mild right upper extremity edema. Right upper extremity is nontender. Left upper extremity swelling has improved. Procedures None Urinary Catheter: No Vascular Central Line Catheter: No A/P Problem List: (1) Rhabdomyolysis ICD Code: M62.82 - Rhabdomyolysis Status: Acute (2) Elevated liver enzymes ICD Code: R74.8 - Abnormal levels of other serum enzymes Status: Acute Assessment and Plan 1. Rhabdomyolysis: Secondary to high intensity exercise. Renal function remains normal. CK trending down. Continue IV fluids at 150 mL per hour. Monitor strict intake/output. Encourage oral fluid intake. Muscle aches continue to improve. 2. Elevated LFTs: Symptomatically. Possibly secondary to rhabdomyolysis. Hepatitis panel negative. Liver ultrasound negative. LFTs are trending up. Appreciate GI recommendations. 3. DVT prophylaxis: Ambulation. Discharge Planning When CK <5000 and symptoms have improved. Problem Qualifiers (1) Rhabdomyolysis: Qualified Codes: M62.82 - Rhabdomyolysis Dariel Ellis MD Jun 05, 2017 11:42
[2017-06-05 12:00] VITALS: BP 122/63; PULSE 94; RESP 16; TEMP 97.9; O2SAT 98
[2017-06-05 16:00] VITALS: BP 118/66; PULSE 73; RESP 16; TEMP 98.3; O2SAT 100
[2017-06-05 17:16] LABS: TRANSFERRIN IRON PROFILE 217 MG/DL (200-360)
[2017-06-05 17:18] LABS: FERRITIN 41 NG/ML (8-252)
[2017-06-05 19:00] VITALS: O2SAT 100
[2017-06-05 20:00] VITALS: BP 129/59; PULSE 83; RESP 16; TEMP 96.3; O2SAT 96
[2017-06-06] VITALS: BP 119/70; PULSE 71; RESP 17; TEMP 98.7; O2SAT 99
[2017-06-06] MEDS: SODIUM CHLOR 0.9% 1000 ML INJ 1,000 ML IV SCH ×4 (05:39→20:23)
[2017-06-06 08:00] VITALS: BP 102/56; PULSE 76; RESP 18; TEMP 98.5; O2SAT 99
[2017-06-06 08:44] LABS: BICARBONATE 23.9 MEQ/L (21.0-32.0); POTASSIUM 3.9 MEQ/L (3.5-5.1)
[2017-06-06] MEDS: SODIUM CHLORIDE 0.9% FLUSH 10 ML FLUSH IV FLUSH SCH ×2 (09:00→20:23)
[2017-06-06] MEDS: DOCUSATE SODIUM 50 MG/SENNA 8.6 MG TAB PO SCH ×2 (09:06→20:24)
[2017-06-06 10:33] VITALS: O2SAT 99
--- NOTE | 2017-06-06 11:13 | HHI.PR ---
Subjective Remarks Follow-up rhabdomyolysis. Patient reports improvement in the pain in her upper extremities. Swelling is also improving. No dyspnea, chest pain, cough. No nausea or vomiting. Objective Vitals Vital Signs Date Time Temp Pulse Resp B/P (MAP) Pulse Ox O2 Delivery O2 Flow Rate FiO2 06/06/17 10:33 99 06/06/17 08:00 98.5 76 18 102/56 (71) 99 06/06/17 00:00 98.7 71 17 119/70 (86) 99 06/05/17 20:00 96.3 83 16 129/59 (82) 96 06/05/17 19:00 100 06/05/17 16:00 98.3 73 16 118/66 (83) 100 06/05/17 12:00 97.9 94 16 122/63 (82) 98 I/O 06/05/17 06/05/17 06/05/17 06/06/17 06/06/17 06/06/17 07:00 15:00 23:00 07:00 15:00 23:00 Intake Total 2230 ml 250 ml 1460 ml 1820 ml Output Total 1500 ml 900 ml 925 ml Balance 730 ml 250 ml 560 ml 895 ml Intake Oral 480 ml 460 ml 820 ml IV Total 1750 ml 250 ml 1000 ml 1000 ml Output Urine Total 1500 ml 900 ml 925 ml # Bowel Movements 0 1 Result Diagram: 06/03/17 0545 06/06/17 0748 Imaging Last Impressions Liver Ultrasound 06/02/17 0000 Signed Impressions: Service Date/Time: May 17:18 - CONCLUSION: Focally unremarkable sonographic appearance of the right upper quadrant Hero Sears MD Elbow X-Ray 06/02/17 0000 Signed Impressions: Service Date/Time: May 15:31 - CONCLUSION: Intact elbow without evidence of fracture, dislocation or significant arthropathy. No evidence of joint effusion. Carl Nunez MD Objective Remarks Patient examined in presence of the nurse. General: No acute distress. Heart: Regular rate and rhythm. No murmur. Lungs: Clear to auscultation bilaterally. No wheezes, rales, or rhonchi. Breathing is nonlabored. Abdomen: Soft, nontender, nondistended. Extremities: No lower extremity edema. Mild right upper extremity edema. Right upper extremity is nontender. Left upper extremity swelling has improved. Procedures None Urinary Catheter: No Vascular Central Line Catheter: No A/P Problem List: (1) Rhabdomyolysis ICD Code: M62.82 - Rhabdomyolysis Status: Acute (2) Elevated liver enzymes ICD Code: R74.8 - Abnormal levels of other serum enzymes Status: Acute Assessment and Plan 1. Rhabdomyolysis: Secondary to high intensity exercise. Renal function remains normal. CK trending down, now at 10,644. Continue IV fluids at 150 mL per hour. Monitor strict intake/output. Encourage oral fluid intake. Muscle aches continue to improve. 2. Elevated LFTs: Symptomatically. Possibly secondary to rhabdomyolysis. Hepatitis panel negative. Liver ultrasound negative. Appreciate GI recommendations. Recheck LFTs in the morning. 3. DVT prophylaxis: Ambulation. Discharge Planning When CK <5000 and symptoms have improved. Problem Qualifiers (1) Rhabdomyolysis: Qualified Codes: M62.82 - Rhabdomyolysis Dariel Ellis MD Jun 06, 2017 11:13
[2017-06-06 12:00] VITALS: BP 118/66; PULSE 87; RESP 18; TEMP 96.1; O2SAT 100
[2017-06-06 16:00] VITALS: BP 118/74; PULSE 84; RESP 18; TEMP 97.9; O2SAT 100
[2017-06-06 20:00] VITALS: BP 115/69; PULSE 73; RESP 18; TEMP 98; O2SAT 100
--- NOTE | 2017-06-06 23:17 | HHI.GIFU ---
Subjective Remarks Patient laying comfortably in bed feeling much better but still complains of aching in her upper extremities Objective Vitals I&O Vital Signs Date Time Temp Pulse Resp B/P (MAP) Pulse Ox O2 Delivery O2 Flow Rate FiO2 06/06/17 20:00 98.0 73 18 115/69 (84) 100 06/06/17 16:00 97.9 84 18 118/74 (89) 100 06/06/17 12:00 96.1 87 18 118/66 (83) 100 06/06/17 10:33 99 06/06/17 08:00 98.5 76 18 102/56 (71) 99 06/06/17 00:00 98.7 71 17 119/70 (86) 99 I/O 06/06/17 06/06/17 06/06/17 06/07/17 06/07/17 06/07/17 07:00 15:00 23:00 07:00 15:00 23:00 Intake Total 1820 ml 1200 ml Output Total 925 ml 975 ml Balance 895 ml 225 ml Intake Oral 820 ml 1200 ml IV Total 1000 ml Output Urine Total 925 ml 975 ml Laboratory Laboratory Tests Test 06/06/17 07:48 Blood Urea Nitrogen 7 Creatinine 0.74 Random Glucose 75 Calcium Level 8.0 Sodium Level 139 Potassium Level 3.9 Chloride Level 108 Carbon Dioxide Level 23.9 Anion Gap 7 Estimat Glomerular Filtration Rate 118 Total Creatine Kinase 03784 Creatine Kinase MB 1.0 Creatine Kinase MB % 0.0 Anti-Nuclear Antibody Screen NEG Imaging Last Impressions Liver Ultrasound 06/02/17 0000 Signed Impressions: Service Date/Time: May 17:18 - CONCLUSION: Focally unremarkable sonographic appearance of the right upper quadrant Hero Sears MD Elbow X-Ray 06/02/17 0000 Signed Impressions: Service Date/Time: May 15:31 - CONCLUSION: Intact elbow without evidence of fracture, dislocation or significant arthropathy. No evidence of joint effusion. Carl Nunez MD Physical Exam HEENT: normocephalic; atraumatic; no jaundice. Throat is clear. NECK: Neck is supple, CHEST: Chest is clear to auscultation and percussion. CARDIAC: Regular rate and rhythm with no murmur gallop or rubs. ABDOMEN: Soft, nondistended, nontender; no hepatosplenomegaly; bowel sounds are present in all four quadrants. EXTREMITIES: No clubbing, cyanosis, or edema. SKIN: Normal; no rash; no jaundice. WARRANTY CLERK: No focal deficits; alert and oriented times three. Assessment and Plan Plan ASSESSMENT: - Elevated LFTs, most likely secondary to Rhabdomyolysis. Liver US (06/02/17)--- > Focally unremarkable sonographic appearance of the right upper quadrant. Hep. Profile (-). On admission, noted to have LFTs of T. Bili 0.3, AST 495, ALT 116, Alk Phosph 82. She is getting IVF and LFTs are only slightly improved, with T. Bili 0.1, AST 423, ALT 143, Alk Phosph 79. No n/v/d. Mild lower abdominal cramping/constipation. Will get liver workup, although this is most likely related to her Rhabdo and suspect that her liver enzymes will improve once her CPK starts to decline more. Avoid hepatotoxins. - Rhabdomyolysis. 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 She had soreness the next day, which became more severe with swelling by Tuesday. She was evaluated at the school clinic and referred to the ER. On admission, she was noted to have CPK of 29,862 and is being treated with IVF and today, her CPK is 17,089. IVF. - Constipation, mild. Senokot, Colace ordered. PLAN: - KUMAR - IVF - AFP - YVONNE, AMA, ASMA - Ceruloplasmin, Alpha 1 Antitrypsin - Ferritin, Iron saturation - Monitor LFTs, CPK, renal function - Avoid hepatotoxins - Supportive care - Further recommendations to follow based on results of above -Workup so far negative Gilberto Trevino MD Jun 06, 2017 23:17
[2017-06-07] VITALS: BP 112/71; PULSE 75; RESP 18; TEMP 98.4; O2SAT 99
[2017-06-07] MEDS: SODIUM CHLOR 0.9% 1000 ML INJ 1,000 ML IV SCH ×3 (05:36→17:51)
[2017-06-07 08:00] VITALS: BP 116/60; PULSE 79; RESP 17; TEMP 98.4; O2SAT 99
[2017-06-07 09:04] LABS: AST (GOT) 181 U/L (15-37); BICARBONATE 22.9 MEQ/L (21.0-32.0); BLOOD UREA NITROGEN 7 MG/DL (7-18); GLOMERULAR FILTRATION RATE 120 ML/MIN (>89)
[2017-06-07 09:05] LABS: ALT (GPT) 114 U/L (10-53)
[2017-06-07 09:21] LABS: ALKALINE PHOSPHATASE 67 U/L (45-117); ANION GAP 8 MEQ/L (5-15); CHLORIDE 107 MEQ/L (98-107); CREATINE KINASE 6715 U/L (26-192); POTASSIUM 3.9 MEQ/L (3.5-5.1); SODIUM (NA) 138 MEQ/L (136-145); TOTAL BILIRUBIN ADULT 0.2 MG/DL (0.2-1.0)
[2017-06-07 09:40] LABS: CKMB 1.3 NG/ML (0.5-3.6)
[2017-06-07] MEDS: SODIUM CHLORIDE 0.9% FLUSH 10 ML FLUSH IV FLUSH SCH ×2 (09:57→21:00)
[2017-06-07] MEDS: DOCUSATE SODIUM 50 MG/SENNA 8.6 MG TAB PO SCH ×2 (09:57→21:00)
--- NOTE | 2017-06-07 10:24 | HHI.GIFU ---
Subjective Remarks Resting in bed in no distress. Feeling much better. No GI complaints. Tolerating diet. (Tati Romero) Objective Vitals I&O Vital Signs Date Time Temp Pulse Resp B/P (MAP) Pulse Ox O2 Delivery O2 Flow Rate FiO2 06/07/17 08:00 98.4 79 17 116/60 (78) 99 06/07/17 00:00 98.4 75 18 112/71 (85) 99 06/06/17 21:30 21 06/06/17 20:00 98.0 73 18 115/69 (84) 100 06/06/17 16:00 97.9 84 18 118/74 (89) 100 06/06/17 12:00 96.1 87 18 118/66 (83) 100 06/06/17 10:33 99 I/O 06/06/17 06/06/17 06/06/17 06/07/17 06/07/17 06/07/17 07:00 15:00 23:00 07:00 15:00 23:00 Intake Total 1820 ml 2200 ml 1000 ml Output Total 925 ml 975 ml Balance 895 ml 1225 ml 1000 ml Intake Oral 820 ml 1200 ml IV Total 1000 ml 1000 ml 1000 ml Output Urine Total 925 ml 975 ml # Voids 2 Laboratory Laboratory Tests Test 06/07/17 08:12 Blood Urea Nitrogen 7 Creatinine 0.73 Random Glucose 79 Total Protein 6.4 Albumin 2.8 Calcium Level 8.2 Alkaline Phosphatase 67 Aspartate Amino Transf (AST/SGOT) 181 Alanine Aminotransferase (ALT/SGPT) 114 Total Bilirubin 0.2 Sodium Level 138 Potassium Level 3.9 Chloride Level 107 Carbon Dioxide Level 22.9 Anion Gap 8 Estimat Glomerular Filtration Rate 120 Total Creatine Kinase 6715 Creatine Kinase MB 1.3 Creatine Kinase MB % 0.0 Imaging Last Impressions Liver Ultrasound 06/02/17 0000 Signed Impressions: Service Date/Time: May 17:18 - CONCLUSION: Focally unremarkable sonographic appearance of the right upper quadrant Hero Sears MD Elbow X-Ray 06/02/17 0000 Signed Impressions: Service Date/Time: May 15:31 - CONCLUSION: Intact elbow without evidence of fracture, dislocation or significant arthropathy. No evidence of joint effusion. Carl Nunez MD Physical Exam HEENT: Normocephalic; atraumatic; no jaundice. CHEST: Chest is clear to auscultation and percussion. CARDIAC: Regular rate and rhythm with no murmur gallop or rubs. ABDOMEN: Soft, nondistended, nontender; no hepatosplenomegaly; bowel sounds are present in all four quadrants. EXTREMITIES: No clubbing, cyanosis, or edema. SKIN: Normal; no rash; no jaundice. 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 (Tati Romero) Assessment and Plan Plan ASSESSMENT: - Elevated LFTs, secondary to Rhabdomyolysis. Liver US (06/02/17)---> Focally unremarkable sonographic appearance of the right upper quadrant. Hep. Profile ( -). On admission, noted to have LFTs of T. Bili 0.3, AST 495, ALT 116, Alk Phosph 82. Hepatitis profile, YVONNE negative, AMA pending, ASMA pending, Alpha 1 antitrypsin pending, ceruloplasmin pending, AFP 1.0, Ferritin 41, Iron saturation 17.8. She is getting IVF and LFTs have been trending down. T. Bili 0.2, AST 181, ALT 114, Alk Phosph 67. Avoid hepatotoxins. - Rhabdomyolysis. She is in the [employer] program at [employer] and did a high intensity upper body workout this past Tuesday. She had soreness the next day, which became more severe with swelling by Tuesday. She was evaluated at the school clinic and referred to the ER. On admission, she was noted to have CPK of 29,862 and is being treated with IVF and CPK is trending down, down to 6715. - Constipation, mild. Senokot, Colace ordered. PLAN: - KUMAR - IVF - Await Ceruloplasmin, Alpha 1 Antitrypsin - Monitor LFTs, CPK, renal function - Avoid hepatotoxins - Supportive care - Further recommendations to follow based on results of above - Pt seen and examined by Dr. Trevino and myself and this note is written on his behalf (Tati Romero) Physician Comments Patient seen and examined Agree with above Continue with current supportive care Monitor labs Not much to add from a GI perspective therefore we will sign off Patient follow-up with GI post discharge to continue to monitor labs to complete resolution Please reconsult as needed (Gilberto Trevino MD) Tati Romero Jun 07, 2017 10:24 Gilberto Trevino MD Jun 07, 2017 19:26
--- NOTE | 2017-06-07 11:25 | HHI.PR ---
Subjective Remarks Follow up rhabdomyolysis, elevated LFTs. The patient states that she feels good today. Muscle pain has essentially resolved in her upper extremities. Swelling has improved as well. Objective Vitals Vital Signs Date Time Temp Pulse Resp B/P (MAP) Pulse Ox O2 Delivery O2 Flow Rate FiO2 06/07/17 08:00 98.4 79 17 116/60 (78) 99 06/07/17 00:00 98.4 75 18 112/71 (85) 99 06/06/17 21:30 21 06/06/17 20:00 98.0 73 18 115/69 (84) 100 06/06/17 16:00 97.9 84 18 118/74 (89) 100 06/06/17 12:00 96.1 87 18 118/66 (83) 100 I/O 06/06/17 06/06/17 06/06/17 06/07/17 06/07/17 06/07/17 07:00 15:00 23:00 07:00 15:00 23:00 Intake Total 1820 ml 2200 ml 1000 ml Output Total 925 ml 975 ml Balance 895 ml 1225 ml 1000 ml Intake Oral 820 ml 1200 ml IV Total 1000 ml 1000 ml 1000 ml Output Urine Total 925 ml 975 ml # Voids 2 Result Diagram: 06/03/17 0545 06/07/17 0812 Imaging Last Impressions Liver Ultrasound 06/02/17 0000 Signed Impressions: Service Date/Time: May 17:18 - CONCLUSION: Focally unremarkable sonographic appearance of the right upper quadrant Hero Sears MD Elbow X-Ray 06/02/17 0000 Signed Impressions: Service Date/Time: May 15:31 - CONCLUSION: Intact elbow without evidence of fracture, dislocation or significant arthropathy. No evidence of joint effusion. Carl Nunez MD Objective Remarks Patient examined in presence of the nurse. General: No acute distress. Heart: Regular rate and rhythm. No murmur. Lungs: Clear to auscultation bilaterally. No wheezes, rales, or rhonchi. Breathing is nonlabored. Abdomen: Soft, nontender, nondistended. Extremities: No lower extremity edema. No upper extremity edema or tenderness. Procedures None Urinary Catheter: No Vascular Central Line Catheter: No A/P Problem List: (1) Rhabdomyolysis ICD Code: M62.82 - Rhabdomyolysis Status: Acute (2) Elevated liver enzymes ICD Code: R74.8 - Abnormal levels of other serum enzymes Status: Acute Assessment and Plan 1. Rhabdomyolysis: Secondary to high intensity exercise. Renal function remains normal. CK trending down, now at 6715. Continue IV fluids at 150 mL per hour. Monitor strict intake/output. Encourage oral fluid intake. Muscle aches continue to improve. 2. Elevated LFTs: Likely secondary to rhabdomyolysis. Hepatitis panel negative. Liver ultrasound negative. Appreciate GI recommendations. LFTs are trending down. 3. DVT prophylaxis: Ambulation. Discharge Planning When CK <5000 and symptoms have improved. Problem Qualifiers (1) Rhabdomyolysis: Qualified Codes: M62.82 - Rhabdomyolysis Dariel Ellis MD Jun 07, 2017 11:25
[2017-06-07 12:00] VITALS: BP 115/65; PULSE 80; RESP 16; TEMP 98.3; O2SAT 99
[2017-06-07 16:00] VITALS: BP 118/59; PULSE 87; RESP 16; TEMP 97.2; O2SAT 99
[2017-06-07 20:00] VITALS: BP 119/71; PULSE 69; RESP 18; TEMP 97.1; O2SAT 99
[2017-06-08] VITALS: BP 124/67; PULSE 71; RESP 18; TEMP 98.5; O2SAT 99
[2017-06-08] MEDS: SODIUM CHLOR 0.9% 1000 ML INJ 1,000 ML IV SCH ×2 (00:16→06:23)
[2017-06-08 08:00] VITALS: BP 114/56; PULSE 68; RESP 16; TEMP 96.9; O2SAT 100
[2017-06-08 08:38] LABS: INDIRECT BILIRUBIN 0.1 MG/DL (0.0-0.8); TOTAL BILIRUBIN ADULT 0.2 MG/DL (0.2-1.0)
[2017-06-08 08:57] LABS: CKMB 1.6 NG/ML (0.5-3.6)
[2017-06-08] MEDS: SODIUM CHLORIDE 0.9% FLUSH 10 ML FLUSH IV FLUSH SCH (09:00)
[2017-06-08] MEDS: DOCUSATE SODIUM 50 MG/SENNA 8.6 MG TAB PO SCH (09:00)
[2017-06-08 09:39] LABS: BICARBONATE 22.1 MEQ/L (21.0-32.0)
--- NOTE | 2017-06-08 09:57 | HHI.DCPOC ---
Discharge Care Plan Diagnosis: (1) Rhabdomyolysis (2) Elevated liver enzymes Goals to Promote Your Health * To prevent worsening of your condition and complications * To maintain your health at the optimal level Directions to Meet Your Goals Take your medications as prescribed Follow your dietary instruction Follow activity as directed Keep your appointments as scheduled Take your immunizations and boosters as scheduled If your symptoms worsen call your PCP, if no PCP go to Urgent Care Center or Emergency Room Smoking is Dangerous to Your Health. Avoid second hand smoke Call the 24-hour hour crisis hotline for domestic abuse at Dariel Ellis MD Jun 08, 2017 09:57
--- NOTE | 2017-06-08 10:00 | HHI.DS ---
cc: Ni Ford MD Discharge Summary Admission Date Jun 02, 2017 at 15:39 Discharge Date: Jun 08, 2017 Admitting Diagnosis acute rhabdomyolisis, elevated liver enzymes (1) Rhabdomyolysis ICD Code: M62.82 - Rhabdomyolysis Status: Acute (2) Elevated liver enzymes ICD Code: R74.8 - Abnormal levels of other serum enzymes Status: Acute Procedures None Brief History - From Admission This is a 21-year-old female with a past medical history complaining of generalized muscle pain especially bilaterally in the arms. Patient stated that on Tuesday she was doing a high intense type of exercise with [employer]. She stated that the next day she started having some muscle soreness but it was very severe on Tuesday. Patient stated that pain continues to worsen and did not improve. She also stated he was hard to extend her arm at the elbow due to pain. Patient then went to her medical clinic because she was suppose to do the same exercises the next day and she was referred by medical provider there to go to the emergency department. Patient rarely drinks any alcohol. She stated she is up-to-date with hepatitis B vaccination. Denied pain or nausea vomiting. She has no history of liver disease. She stated that she produced the same amount of urine but it did look darker. Otherwise other review of system reviewed and negative. CBC/BMP: 06/08/17 0726 Significant Findings Laboratory Tests Test 06/06/17 07:48 06/07/17 08:12 06/08/17 07:26 Calcium Level 8.0 MG/DL (8.5-10.1) 8.2 MG/DL (8.5-10.1) 8.0 MG/DL (8.5-10.1) Chloride Level 108 MEQ/L (98-107) 109 MEQ/L (98-107) Total Creatine Kinase 11406 U/L (26-192) 6715 U/L (26-192) 3957 U/L (26-192) Albumin 2.8 GM/DL (3.4-5.0) 2.6 GM/DL (3.4-5.0) Aspartate Amino Transf (AST/SGOT) 181 U/L (15-37) 116 U/L (15-37) Alanine Aminotransferase (ALT/SGPT) 114 U/L (10-53) 95 U/L (10-53) Total Protein 6.2 GM/DL (6.4-8.2) Imaging Last Impressions Liver Ultrasound 06/02/17 0000 Signed Impressions: Service Date/Time: May 17:18 - CONCLUSION: Focally unremarkable sonographic appearance of the right upper quadrant Hero Sears MD Elbow X-Ray 06/02/17 0000 Signed Impressions: Service Date/Time: May 15:31 - CONCLUSION: Intact elbow without evidence of fracture, dislocation or significant arthropathy. No evidence of joint effusion. Carl Nunez MD PE at Discharge Patient examined in presence of the nurse. General: No acute distress. Heart: Regular rate and rhythm. No murmur. Lungs: Clear to auscultation bilaterally. No wheezes, rales, or rhonchi. Breathing is nonlabored. Abdomen: Soft, nontender, nondistended. Extremities: No lower extremity edema. No upper extremity edema or tenderness. Pt update on day of discharge No complaints at this time. She wants to go home. She denies upper extremity pain. Hospital Course The patient was admitted for management of rhabdomyolysis. She was continued on IV fluids. Her renal function remained normal. Her CK trended down. Her transaminases were elevated. Liver ultrasound and hepatitis panel were negative. Gastroenterology was consulted. The LFT elevation was felt to be secondary to rhabdomyolysis. As the rhabdomyolysis improved, the LFTs improved as well. The patient came asymptomatic. She was felt to be stable for discharge home. She was encouraged to continue oral hydration and to avoid strenuous exercise. Pt Condition on Discharge: Stable Discharge Disposition: Discharge Home Discharge Time: > 30 minutes Discharge Instructions DIET: Follow Instructions for: As Tolerated, No Restrictions Activities you can perform: See Additionl Instruction Activities to Avoid: Strenuous Activity Other Activity Instructions: Light activity, no weightlifting. Follow up Referrals: PCP Follow-up - 1 Week with Ni Ford MD Continued Medications: [ortho] () Dariel Ellis MD Jun 08, 2017 10:00
[2017-06-08 12:00] VITALS: BP 116/68; PULSE 74; RESP 17; TEMP 98.4; O2SAT 100
[2017-06-09 23:53] LABS: MITOCHONDRIAL ABS LESS THAN 20.0 U (<=20.0)
== END 2017-06-08 14:13 | disposition home or self-care (01) | DRG 558 ==
LOC: NEPE 11:56 → NEDA 15:39 → N07A 18:06
PROVIDERS: ADMIT Family Medicine; ATTEND Family Medicine
DX: M62.82 Rhabdomyolysis (principal); K59.00 Constipation, unspecified
CPT/HCPCS: 73070; 76705; 76937; 80048; 80053; 80074; 80076; 81001; 82103; 82105; 82390; 82550; 82552; 82728; 83520; 83540; 83550; 84703; 85025; 85027; 86038; 86255; J7030

== ENCOUNTER → 2017-06-10 | Outpatient (CLI) | payer BC, OTHER ==
[~2017-06-10] MED LIST: ORTHO
== END ==
LOC: CLAB 11:54
PROVIDERS: ATTEND Family Medicine
DX: M62.82 Rhabdomyolysis (principal)
CPT/HCPCS: 36415; 82550; 82552